=== PATIENT | female | born 2000 | race Caucasian/White ===

== ENCOUNTER 2021-06-05 16:21 | Emergency (ER) | payer OTHER, SELFPAY ==
[2021-06-05 16:23] VITALS: BP 134/81; PULSE 118; RESP 18; TEMP 36.9; O2SAT 95; BMI 25.8
--- NOTE | 2021-06-05 16:31 | NURSING ---
NO OLD EKGS
--- NOTE | 2021-06-05 16:31 | NURSING ---
NO OLD EKGS
--- NOTE | 2021-06-05 17:00 | EKG12_ITS ---
Test Reason : Blood Pressure : / mmHG Vent. Rate : 090 BPM Atrial Rate : 090 BPM P-R Int : 112 ms QRS Dur : 084 ms QT Int : 324 ms P-R-T Axes : 041 052 045 degrees QTc Int : 396 ms Normal sinus rhythm with sinus arrhythmia Normal ECG Confirmed by EARLENE JOINER, MARK ([id number]), purchase request editor MAME TAM ([id number]) on 06/06/2021 1:00:45 PM Referred By: MASON Confirmed By:MARK HENAO MD
--- NOTE | 2021-06-05 17:25 | RAD_ITS ---
STUDY: X-RAY CHEST REASON FOR EXAM: Female, 20 years old. chest pain TECHNIQUE: Frontal portable view of the chest COMPARISON: None. FINDINGS: The lungs are clear and expanded. There is no demonstrated pleural abnormality. Normal size heart. Normal mediastinum and gerardo. Normal visualized pulmonary arteries. Normal visualized aortic arch and descending thoracic aorta. Normal visualized thoracic spine. Normal visualized ribs, clavicles, and shoulders. There is no demonstrated abnormality of the visualized soft tissue structures of the upper abdomen. RAD/Chest 1 View (Portable) IMPRESSION: Normal x-ray examination of the chest. Electronically Signed: Zehra Wilson MD at 17:45 EDT Tel , Service support ,
[2021-06-05 17:33] LABS: Absolute Lymphocyte Count 1.36 X10^3/uL (0.83-4.51); Absolute Neutrophil Count 6.7 X10^3/uL (2.0-7.7); Basophil# 0.04 X10^3/uL; Basophil% 0.5 % (0-1); Hematocrit 43.6 % (37-47); Hemoglobin 14.9 g/dL (12.0-15.0); Lymphocyte # 1.36 X10^3/ul (0.83-4.51); Lymphocyte % 15.8 % (19-41); Mean Corp Hgb Conc 34.2 g/dL (32-36); Mean Corpuscular Hgb 30.7 pg (27.0-32.0); Mean Corpuscular Volume 89.7 fL (81-99); Mean Platelet Vol. 9.6 fl (6.2-12.0); Monocyte# 0.49 X10^3/uL; Monocyte% 5.7 % (0-10); NRBC Flagged by Analyzer 0 % (0-5); Neutrophil # 6.68 X10^3/uL (2.7-7.7); Neutrophil % 77.7 % (47-70); Platelet Count 235 K/mm3 (150-450); RBC Distribution Width CV 12.2 % (11.6-14.6); RBC Distribution Width SD 39.8 fl (35.1-43.9); Red Blood Count 4.86 M/mm3 (4.2-5.4); White Blood Count 8.6 K/mm3 (4.4-11.0)
--- NOTE | 2021-06-05 17:49 | NURSING ---
CHEMISTRIES AND TROP HEMOLIZED
--- NOTE | 2021-06-05 17:50 | ED.VIS.CHEST ---
HPI History of Present Illness Chief Complaint: Chest Pain Narrative Narrative: 20-year-old female with no significant medical history presenting with chest pain. She states is worse with deep inspiration. She states that she was been sick for the last 3 weeks. She has been fatigued but did not have a fever. She did not have loss of taste or smell. She was tested twice for COVID-19 and testing was negative both times. A few days ago her father wrote a prescription for her to have prednisone and give her an albuterol inhaler which is not helping. Patient has no history of DVT/PE. No cardiac history. She states prior to this she was otherwise healthy. [facility]LY [facility] PFS Medical History no medical history Home Medications prednisone See Taper PO DAILY 06/05/21 [History Last Taken Unknown] Allergy/AdvReac Type Severity Reaction Status Date / Time No Known Allergies Allergy Verified 06/05/21 17:04 Social History Smoking Status: Never smoker ROS ROS ED Constitutional Constitutional ED: Denies chills or fever(s) Eyes Eyes: Denies blurry vision or change in vision ENT ENT ED: Denies rhinorrhea or sore throat Cardiovascular Cardiovascular: Reports chest pain Respiratory/Chest Respiratory/Chest: Reports cough; Denies dyspnea Gastrointestinal Gastrointestinal: Denies abdominal pain, nausea or vomiting Genitourinary Genitourinary ED: Denies dysuria or hematuria Musculoskeletal Musculoskeletal: Denies arthralgias or myalgias Integumentary Denies Abrasions or rash Neurologic Neurologic: Denies headache(s) or paresthesias Psychiatric Psychiatric: Denies anxiety or depression EXAM Physical Exam Const Vital Signs: 06/05/21 16:23 06/05/21 17:08 Temperature 98.4 F Temperature Source Temporal Pulse Rate 118 H Respiratory Rate 18 Respiratory Effort Normal Non-Labored Respiratory Pattern Normal Blood Pressure 134/81 H Blood Pressure Mean 98 Pulse Ox 95 Oxygen Delivery Method Room Air Room Air Positive well developed General Appearance ED: well developed and NAD; Negative for pallor HEENT Reports normocephalic, head/scalp atraumatic and moist mucous membranes Eyes PERRL and EOMs intact bilaterally Neck no lymphadenopathy and supple Chest Wall inspection of chest normal and palpation of chest normal Resp normal respiratory effort and clear to auscultation bilaterally Auscultation: Negative for rales, rhonchi or wheezes Cardio regular rate and regular rhythm GI normal to inspection, nondistended, normoactive bowel sounds and non-distended Auscultation: normoactive bowel sounds Palpation: soft Narrative: Deferred Extremity normal to inspection General Extremety ED: Yes edema and tenderness General Extremity: edema Neuro oriented x3 and CN's II-XII intact bilaterally Sensorium / Orientation: alert Motor Exam: strength 5/5 throughout Psych mental status grossly normal Attitude: No agitated Skin no rashes or lesions noted and no wounds General Skin Exam: Negative for jaundice or pallor Heart Score History: Slightly/Non-Suspicious ECG: Normal Age: </= 45 years Risk Factors: No Risk Factors Troponin: </= Normal Limit Score: 0 MDM MDM MDM Narrative Medical decision making narrative: Patient presenting with chest pain which he states is worse on deep inspiration. She also recently had something at this point caused her to be sick and she states she tested negative for COVID-19 twice. This was 3 weeks ago. Her blood work today is normal. Renal function electrolytes are normal. No leukocytosis or anemia. D-dimer is negative troponin is negative. EKG on my interpretation shows a sinus rhythm with a ventricular rate of 90 bpm without signs of any imaging. Tachycardia chest x-ray on my interpretation shows no acute cardiopulmonary process and the radiologist does agree. I have a low suspicion for ACS and no young otherwise healthy female. Is consistent with right I do not believe she needs a delta troponin. Patient findings were discussed with her and her father who is a physician. Will be discharged home in stable condition Impression: 1. Chest pain noncardiac Lab Data Attestation: I reviewed the patient's lab results. Labs: Laboratory Results - last 24 hr 06/05/21 06/05/21 06/05/21 17:28 17:28 17:28 WBC 8.6 RBC 4.86 Hgb 14.9 Hct 43.6 MCV 89.7 MCH 30.7 MCHC 34.2 RDW Std Deviation 39.8 RDW Coeff of Loy 12.2 Plt Count 235 MPV 9.6 Immature Gran % (Auto) 0.300 Neut % (Auto) 77.7 H Lymph % (Auto) 15.8 L Luna % (Auto) 5.7 Eos % (Auto) 0.0 Baso % (Auto) 0.5 Absolute Neuts (auto) 6.7 Absolute Lymphs (auto) 1.36 Nucleated RBC % 0 D-Dimer Quant (PE/DVT) <= 0.27 Sodium Cancelled Potassium Cancelled Chloride Cancelled Carbon Dioxide Cancelled Anion Gap Cancelled BUN Cancelled Creatinine Cancelled Estim Creat Clear Calc Cancelled Est GFR (MDRD) Af Amer Cancelled Est GFR (MDRD) Non-Af Cancelled BUN/Creatinine Ratio Cancelled Glucose Cancelled Calcium Cancelled Troponin I High Sens Cancelled 06/05/21 18:05 WBC RBC Hgb Hct MCV MCH MCHC RDW Std Deviation RDW Coeff of Loy Plt Count MPV Immature Gran % (Auto) Neut % (Auto) Lymph % (Auto) Luna % (Auto) Eos % (Auto) Baso % (Auto) Absolute Neuts (auto) Absolute Lymphs (auto) Nucleated RBC % D-Dimer Quant (PE/DVT) Sodium 139 Potassium 4.0 Chloride 105 Carbon Dioxide 27.0 Anion Gap 7 BUN 9 Creatinine 0.62 Estim Creat Clear Calc 108.31 Est GFR (MDRD) Af Amer 156 Est GFR (MDRD) Non-Af 129 BUN/Creatinine Ratio 14.6 Glucose 113 H Calcium 9.5 Troponin I High Sens 8 Radiography Diagnostic Testing: Clinical Impression(s) from Imaging Studies Chest X-Ray 06/05/21 17:25 IMPRESSION: Normal x-ray examination of the chest. Electronically Signed: Zehra Wilson MD at 17:45 EDT Tel , Service support , Discharge Plan Triage Chief Complaint: Chest Pain ED Provider: Marcelo Thomas Dx/Rx/DC Orders Instructions: ED Chest Pain, Noncardiac Prescriptions: No Action prednisone 10 mg Tablets,Dose Pack See Taper mg PO DAILY RF: 0 Primary Care Provider: Glen Cloud Referrals: Glen Cloud DO [Primary Care Provider] - Disposition Disposition: Home, Self Care Discharge Date/Time: 06/05/21 19:28
[2021-06-05 18:03] LABS: D-Dimer Quantitative (DVT/PE) <= 0.27 FEU/ug/m (0.27-0.49)
[2021-06-05 18:33] LABS: Anion Gap 7 (5-15); BUN 9 mg/dL (7-18); BUN/Creat Ratio 14.6 RATIO (10-20); Calcium,Total 9.5 mg/dL (8.5-10.1); Chloride 105 mmol/L (98-107); Creatinine, Serum 0.62 mg/dL (0.55-1.02); EST Glomerular Filtration Rate 129 mL/min (>60); Est Glom Filt Rate - Afr Amer 156 mL/min (>60); Estimated Creatinine Clearance 108.31 ml/min; Glucose 113 mg/dL (74-106); Sodium Level 139 mmol/L (136-145); Troponin-I HS 8 pg/mL (3.0-54.0)
[2021-06-05] MEDS: Ketorolac 15 MG/ML Vial IV (19:13)
== END 2021-06-05 19:28 | disposition home or self-care (01) ==
PROVIDERS: Emergency Provider Student in an Organized Health Care Education/Training Program; PCP Family Medicine
DX: R07.89 Other chest pain (principal); R53.83 Other fatigue; I49.8 Other specified cardiac arrhythmias; Z79.52 Long term (current) use of systemic steroids
CPT/HCPCS: 71045; 80048; 84484; 85025; 85379; 93005; 96374; 99285; A4216